=== PATIENT | male | born 1950 | race Caucasian/White ===

== ENCOUNTER 2019-08-03 12:17 | Inpatient (IN) | payer MEDICARE ==
[~2019-08-03] VITALS: Ht 152.4 cm; Wt 86.2 kg
[~2019-08-03 12:17] MED LIST: AMLO5 PO; ASPI325EC PO; ASPI81CH PO; Aspir 8181 MG PO; ERGO400 PO; ERGO50000 PO; ESZO2 PO; GLUCOSAMINE &1 EACH PO; HYDR-86 PO; HYDR1TAB94 PO; MARIJUANA PO; OXYC10TA19 PO; OXYC5 PO; PRAV20 PO; PSEHYDGUAL PO; RANI150 PO; VITAMIN D31 ML PO; ZOLP10 PO; [UNRECOGNIZED DRUG - OTHER] PO
--- NOTE | 2019-08-06 11:02 | NUR ---
Ambulatory in Day Surgery History, Chart, Medications and Allergies reviewed before start of procedure.Patient confirms NPO status and agrees with scheduled surgery. Surgical site prepped with 2% Chlorhexidine cloth wipe. Lungs clear T/O to Auscultation. Patient reports completing Chlorhexadine shower X2 prior to admission to hospital.
--- NOTE | 2019-08-06 18:41 | NUR ---
POST OP: REPORT RECIEVED FROM [facility] SPECIALISTHUSSAIN CARR. PT TO UNIT AT ABOUT 1750. UPON ASSESSMENT PT IS A/O, NO VISABLE DISTRESS, VSS. DENIES ANY PAIN, SURGICAL SITE WNL. REPORTS FULL SENSATION IN R HIP, PT HAD SPINAL. PT ABLE TO AMBULATE TO BATHROOM WITH FWW AND SBA WITH ROYAL AMES. WILL CTM AND REPORT TO NOC HUSSAIN.
--- NOTE | 2019-08-06 19:52 | NUR ---
1951: PT FOUND BY RN SUPINE IN BED AND STATES THAT HE PLACED HIMSELF INTO BED UNASSISTED BECAUSE OF NEED TO VOID. CONTINUE TO STRONGLY REINFORCE PT SAFETY EDUCATION.
--- NOTE | 2019-08-06 21:05 | NUR ---
2105: PT GET OUT OF BED UNASSISTED WHILE RN PRESENT IN ROOM AND PROCEEDS TO AMBULATED TO BATHROOM TO VOID WHILE NOT OBSERVING HIP PRECAUTIONS OR USING FWW; PT DID NOT APPEARS STEADY ON FEET AND IS GIVEN FWW TO USE. PT APPEARS RELUCTANT TO USE FWW EVEN AFTER RN EDUCATION OF FALL RISK WITH INCREASED CHANCE OF SURGICAL FAILURE SHOULD SAFETY PRECAUTIONS NOT BE FOLLOW.
--- NOTE | 2019-08-06 23:55 | NUR ---
2355: PT FOUND SITTIN GUP TO SIDE OF BED WHEN RN ROUNDED AND ADMITTED HE WAS NOT GOING TO CALL STAFF FOR SBA FOR BRP. PT USES URINAL AT BEDSIDE AND REPOSITIONS ONTO LEFT SIDE IN BED. CONTINUE TO REINFORCE FALL AND SURGICAL RISK EDUCATION. CALL LIGHT IN REACH AND BED ALARMED FOR PT SAFETY.
[2019-08-07 04:55] LABS: BASOPHILS ABSOLUTE AUTO 0.02 K/mm3 (0.00-0.23); BASOPHILS PERCENT AUTO 0 % (0-2); EOSINOPHILS ABSOLUTE AUTO 0.03 K/mm3 (0.00-0.68); EOSINOPHILS PERCENT AUTO 1 % (0-6); Hemoglobin 12.9 g/dL (13.5-17.5); IMMATURE GRAN ABSOLUTE AUTO 0.03 K/mm3 (0.00-0.10); IMMATURE GRAN PERCENT AUTO 1 % (0-1); LYMPHOCYTES ABSOLUTE AUTO 1.06 K/mm3 (0.84-5.20); LYMPHOCYTES PERCENT AUTO 17 % (21-46); MONOCYTES ABSOLUTE AUTO 0.66 K/mm3 (0.16-1.47); MONOCYTES PERCENT AUTO 11 % (4-13); Mean Corpuscular HGB 29.9 pg (26.0-34.0); Mean Corpuscular HGB Conc 32.3 g/dL (31.5-36.5); Mean Corpuscular Volume 93 fL (80-100); Mean Platelet Volume 9.5 fL (9.1-12.4); NEUTROPHILS PERCENT AUTO 71 % (41-73); Platelet Count 198 K/mm3 (150-400); RDW Coefficient Variation 12.2 % (11.7-14.2); RDW Standard Deviation 41.9 fL (35.1-46.3); Red Blood Cell Count 4.32 M/mm3 (4.30-5.90)
[2019-08-07 05:15] LABS: Anion Gap 3 mmol/L (6-16); Blood Urea Nitrogen 10 mg/dL (8-24); CO2, Blood 31 mmol/L (21-32); Chloride, Blood 103 mmol/L (98-108); Creatinine, Blood 0.83 mg/dL (0.60-1.20); Glomerular Filtration Rate >60 (60-); Glucose, Blood 115 mg/dL (70-99); Potassium, Blood 4.4 mmol/L (3.5-5.5); Sodium, Blood 137 mmol/L (136-145)
[2019-08-07] MEDS ORDERED: ASPI81CH PO (10:39)
[2019-08-07] MEDS ORDERED: ACET500 PO (10:39)
[2019-08-07] MEDS ORDERED: OXYC5 PO (10:41)
--- NOTE | 2019-08-07 13:50 | NUR ---
DISCHARGE: PT CLEARED BY PHYSICAL THERAPY. DISCHARGE PACKET PRINTED AND EDUCATION GIVEN. PT VERBALIZED UNDERSTANDING. GIVEN SCRIPT FOR PAIN AND EXTRA AQUACEL DRESSINGS. PT LEFT AT ABOUT 1220 VIA WHEEL CHAIR OCCOMPANIED BY THIS RN AND .
== END 2019-08-07 12:45 | disposition home or self-care (01) | DRG 470 ==
LOC: SURS 08-06 10:04 → PRE IP 08-06 11:45 → SURS 08-06 17:49
PROVIDERS: ADMIT Orthopaedic Surgery
PROC: 0SR904A Replacement of Right Hip Joint with Ceramic on Polyethylene Synthetic Substitute, Uncemented, Open Approach (ICD-10-PCS; principal; 2019-08-06 11:45)
DX: M16.11 Unilateral primary osteoarthritis, right hip (principal); I10 Essential (primary) hypertension
CPT/HCPCS: 36415; 72170; 80048; 83735; 85025; 88300; 97110; 97116; 97162; C1776; J0690; J1170; J1885; J2250; J2405; J2704; J3010; J7120

== ENCOUNTER → 2022-05-12 | Outpatient (CLI) | payer MEDICARE ==
[~2022-05-12] MED LIST changes: +ACET500 PO
== END | disposition home or self-care (01) ==
LOC: LAB SHORT 07:32 → PLD 07:32
DX: L82.1 Other seborrheic keratosis (principal)
CPT/HCPCS: 88305